=== PATIENT | male | born 1970 | race Two or more races ===

== ENCOUNTER → 2024-08-04 | Outpatient (CLI) | payer BC, SELFPAY ==
[2024-08-04 17:11] LABS: Prostate Specific Antigen 0.58 ng/mL (0-4.00)
[2024-08-04 17:12] LABS: Alanine Aminotransferase 84 U/L (10-49); Albumin, Serum 4.5 gm/dL (3.5-5.0); Alkaline Phosphatase 95 U/L (46-116); Aspartate Amino Transferase 60 U/L (0-34); Bilirubin,Direct 0.3 mg/dL (0.0-0.3); Bilirubin,Total 0.8 mg/dL (0.3-1.2); Total Protein 7.4 gm/dL (5.7-8.2)
== END | disposition home or self-care (01) ==
PROVIDERS: PCP Family Medicine; Referring Provider Family Medicine; Visit Provider Family Medicine
DX: M79.7 Fibromyalgia (principal); N40.0 Benign prostatic hyperplasia without lower urinary tract symptoms
CPT/HCPCS: 36415; 80076; 84153

== ENCOUNTER → 2024-10-03 | Outpatient (CLI) | payer BC, SELFPAY ==
[2024-10-10 06:48] LABS: Testosterone, Free,Dialysis 59.5 pg/mL (35.0-155.0); Testosterone, Total, Dialysis 318 ng/dL (250-1100)
== END | disposition home or self-care (01) ==
LOC: COPL 16:49
PROVIDERS: PCP Family Medicine; Referring Provider Family Medicine; Visit Provider Family Medicine
DX: M51.9 Unspecified thoracic, thoracolumbar and lumbosacral intervertebral disc disorder (principal); E34.9 Endocrine disorder, unspecified; E29.1 Testicular hypofunction
CPT/HCPCS: 36415; 84402; 84403